=== PATIENT | female | born 1985 | race African-American/Black ===

== ENCOUNTER 2019-07-31 10:00 | Emergency (ER) | payer OTHER ==
[~2019-07-31] VITALS: Ht 172.7 cm; Wt 141.5 kg
== END 2019-07-31 13:34 | disposition home or self-care (01) ==
LOC: ER 10:00
DX: S61.233A Puncture wound without foreign body of left middle finger without damage to nail, initial encounter (principal); W27.3XXA Contact with needle (sewing), initial encounter; Y93.89 Activity, other specified; Y92.238 Other place in hospital as the place of occurrence of the external cause; Y99.8 Other external cause status